=== PATIENT | male | born 1960 | race Caucasian/White ===

== ENCOUNTER 2020-04-20 10:00 | Outpatient (CLI) | payer OTHER, SELFPAY | END 2020-04-20 10:01 | disposition home or self-care (01) | LOC: SPT 02-19 12:11 | PROVIDERS: PCP Internal Medicine; Visit Provider Podiatrist Foot & Ankle Surgery | DX: Z46.89 Encounter for fitting and adjustment of other specified devices (principal); M76.71 Peroneal tendinitis, right leg | CPT/HCPCS: L4361 ==

== ENCOUNTER → 2020-04-20 11:04 | Outpatient (BNVA) | payer OTHER, SELFPAY | PROVIDERS: Family Provider Internal Medicine; Referring Provider Internal Medicine; Visit Provider Podiatrist Foot & Ankle Surgery | DX: S92.321A Displaced fracture of second metatarsal bone, right foot, initial encounter for closed fracture (principal); S92.331A Displaced fracture of third metatarsal bone, right foot, initial encounter for closed fracture; X58.XXXA Exposure to other specified factors, initial encounter | CPT/HCPCS: 73630 ==

== ENCOUNTER → 2020-08-05 13:40 | Outpatient (BNVA) | payer OTHER, SELFPAY | PROVIDERS: Family Provider Internal Medicine; PCP Internal Medicine; Visit Provider Podiatrist Foot & Ankle Surgery | DX: M79.671 Pain in right foot (principal) | CPT/HCPCS: 73630 ==

== ENCOUNTER → 2020-09-02 15:16 | Outpatient (BNVA) | payer OTHER, SELFPAY | PROVIDERS: Family Provider Internal Medicine; PCP Internal Medicine; Referring Provider Podiatrist Foot & Ankle Surgery; Visit Provider Podiatrist Foot & Ankle Surgery | DX: S92.321D Displaced fracture of second metatarsal bone, right foot, subsequent encounter for fracture with routine healing (principal); S92.331D Displaced fracture of third metatarsal bone, right foot, subsequent encounter for fracture with routine healing; S92.341D Displaced fracture of fourth metatarsal bone, right foot, subsequent encounter for fracture with routine healing; X58.XXXD Exposure to other specified factors, subsequent encounter | CPT/HCPCS: 73630 ==

== ENCOUNTER 2022-07-19 14:21 | Outpatient (CLI) | payer OTHER, SELFPAY ==
--- NOTE | 2022-07-19 14:36 | XR_ITS ---
WS: [id number] XR knee LT 3V* [id number] REASON FOR EXAM: PAIN IN LEFT KNEE FINDINGS: No acute fracture. Ill-defined sclerosis in the metadiaphysis of the proximal tibia, related to the t ibial tuberosity, not significant. Severe narrowing of the medial knee joint space with extensive subchondral sclerosis in the medial fe moral condyle and medial tibial plateau. Moderate osteophytosis of the medial femoral condyle and med ial tibial plateau. Mild medial shift of the femur. Mild narrowing of the lateral knee joint space with mild subchondral sclerosis and moderate osteophyt osis of the lateral femoral condyle. Moderate narrowing of the patellofemoral joint space with moderate subchondral sclerosis and marginal osteophytosis of the patella and adjacent femoral condyles. XR/XR knee LT 3V* [id number] IMPRESSION: Severe osteoarthritis with near [id number] articulation in the medial joint s pace.
== END 2022-07-19 14:22 | disposition home or self-care (01) ==
LOC: RAD 14:28
PROVIDERS: PCP Internal Medicine; Visit Provider Internal Medicine
DX: M17.12 Unilateral primary osteoarthritis, left knee (principal)
CPT/HCPCS: 73562

== ENCOUNTER → 2024-02-15 11:59 | Outpatient (BNVA) | payer MEDICARE, SELFPAY | PROVIDERS: PCP Internal Medicine; Visit Provider Psychiatry & Neurology Neurology | DX: R40.4 Transient alteration of awareness (principal); R55 Syncope and collapse; R41.9 Unspecified symptoms and signs involving cognitive functions and awareness | CPT/HCPCS: 95816 ==

== ENCOUNTER 2024-02-20 07:05 | Outpatient (CLI) | payer MEDICARE, SELFPAY ==
--- NOTE | 2024-02-20 07:08 | MR_ITS ---
WS: [id number] MRI BRAIN WITHOUT CONTRAST HISTORY: MENTAL STATUS,TRANSIENT ALTERATION COMPARISON: None available. TECHNIQUE: Diffusion imaging, multiplanar T1, T2 and FLAIR imaging obtained. No evidence for acute infarct or hemorrhage. Baltazar-white matter differentiation is normal. Mild symmetric atrophy and minimal small vessel disease. There is a prior lacunar infarct in the RIGH T cerebellum. No large territory infarct. Mild small vessel ischemic disease. Slightly greater distri bution on the RIGHT. No hemorrhage. Normal hippocampal formations. Ventricles and extra-axial spaces are normal. No inferior displacement of cerebellar tonsils. The sella turcica and pituitary gland are unremarkabl e. Dural venous sinuses and ely [place] demonstrate no abnormality on this unenhanced studies. Paranasal sinuses: Clear. Mastoid air cells: Normal. Calvarium and scalp: Intact. MR/MR head wo con* [id number] IMPRESSION: 1. No diffusion abnormalities or hemorrhage. 2. Mild symmetric atrophy and mild small vessel ischemic disease. Slightly gre ater T2 and FLAIR signal hyperintensities on the RIGHT. 3. Tiny lacunar infarct RIGHT cerebellum. 4. Normal hippocampal formations.
== END 2024-02-20 07:06 | disposition home or self-care (01) ==
PROVIDERS: PCP Internal Medicine; Visit Provider Internal Medicine
DX: R40.4 Transient alteration of awareness (principal)
CPT/HCPCS: 70551

== ENCOUNTER 2024-08-20 12:42 | Outpatient (CLI) | payer MEDICARE, SELFPAY ==
--- NOTE | 2024-08-20 12:44 | USCV_ITS ---
Edgar Roach Age: 64 Gender: M : 1960 Exam Date: 08/20/2024 13:25 Ordering Phys: Demarcus Stokes MD Technologist: R Exam Location: [facility] – [place] Indication: stenosis Risk Factors: Previous Vascular Surgery: Right Brachial BP: / Left Brachial BP: / Right Left Velocity (cm/s) Spectral Plaque Velocity (cm/s) Spectral Plaque Syst/Diast Broadening Syst/Diast Broadening 62.10/ 16.70 Prox CCA 84.20 / 14.90 72.40/ 19.30 Mid CCA 81.20 / 16.90 68.50/ 21.90 Distal CCA 58.70 / 13.30 46.70/ 11.30 Prox ICA 37.50 / 11.20 55.00/ 17.40 Mid ICA 34.50 / 13.00 47.30/ 21.10 Distal ICA 50.60 / 17.70 67.90 ECA 59.90 0.70 ICA/CCA 0.60 Antegrade Vertebral Antegrade 26.10/ 6.10 cm/s 27.10/ 6.70 cm/s Tri Subclavian Tri 72.20 91.00 CONCLUSIONS Right ICA stenosis <50%. Mild atheromatous plaque right carotid bulb/ICA. Left ICA stenosis <50%. Mild atheromatous plaque left carotid bulb/ICA. Intimal thickening in the common carotid arteries and internal carotid arteries bilaterally. Normal antegrade Doppler flow noted in the right vertebral artery. Normal antegrade Doppler flow noted in the left vertebral artery. Feroz Sierra MD (Electronically Signed) Final Date: 20 August 2024 14:13 S
--- NOTE | 2024-08-20 13:30 | USCV_ITS ---
Edgar Roach Age: 64 Gender: M : 1960 Exam Date: 08/20/2024 12:53 Ordering Phys: Demarcus Stokes MD Technologist: [place] [facility] [place]: BP: 145 / 91 HR: 44 Rhythm: Sinus Technical Quality: Adequate MEASUREMENTS (Male / Female) Normal Values 2D ECHO LVOT Diameter 2.1 cm LV Ejection Fraction MOD 4C 61.6 % LV Ejection Fraction MOD 2C 64.7 % LV Ejection Fraction 2C AL 65.8 % LA Diameter 4.0 cm RA Systolic Volume 4C AL 77.1 ml RA Systolic Volume 4C MOD 69.6 ml LA Sys Volume AL 57.3 cm cubed LA Sys Volume Index AL 23.4 cm cubed/m squared Aorta at Sinotubular Diameter 2.2 cm M-MODE LA Ao Ratio MM 2.0 AV Cusp Separation MM 2.1 cm DOPPLER AV Peak Velocity 137.0 cm/s AV Area Cont Eq vti 2.4 cm squared AV Area Cont Eq pk 2.7 cm squared MV Peak Velocity 79.0 cm/s MV Area PHT 3.0 cm squared Mitral E to A Ratio 1.6 TR Peak Velocity 155.0 cm/s TR Peak Gradient 9.6 mmHg TV Peak E Velocity 82.0 cm/s PV Peak Velocity 135.0 cm/s FINDINGS Left Ventricle Normal left ventricular size and systolic function, EF 65%. No regional wall motion abnormalities. Right Ventricle The right ventricle is normal in size and function. Right Atrium The right atrium is normal in size. Left Atrium The left atrium is normal in size. Mitral Valve No gross abnormalities noted Aortic Valve Thickened aortic valve. Tricuspid Valve Trace tricuspid valve regurgitation. Estimated pulmonary artery peak systolic pressure within normal limit Pulmonic Valve Pulmonic valve not well visualized. Pericardium Normal pericardium without effusion. Aorta Normal ascending aorta dimension. IVC The inferior vena cava appears normal. CONCLUSIONS Normal left ventricular size and systolic function, EF 65%. No regional wall motion abnormalities. Trace tricuspid valve regurgitation. Estimated pulmonary artery peak systolic pressure within normal limit. Normal cardiac chamber sizes. There is no pericardial effusion. There are no intracardiac masses. No similar previous studies are available for comparison Dr Ajay Hall MD FAC (Electronically Signed) Final Date: 23 August 2024 10:56 S
== END 2024-08-20 12:43 | disposition home or self-care (01) ==
LOC: RAD 12:42
PROVIDERS: PCP Internal Medicine; Visit Provider Psychiatry & Neurology Neurology
DX: G45.9 Transient cerebral ischemic attack, unspecified (principal); S92.344D Nondisplaced fracture of fourth metatarsal bone, right foot, subsequent encounter for fracture with routine healing; R56.9 Unspecified convulsions; I05.9 Rheumatic mitral valve disease, unspecified; R93.89 Abnormal findings on diagnostic imaging of other specified body structures
CPT/HCPCS: 93306; 93880

== ENCOUNTER 2024-10-28 13:46 | Outpatient (CLI) | payer MEDICARE, OTHER, SELFPAY ==
[2024-10-29 10:36] LABS: Levetiracetam Immunoassy 7.4 mcg/mL (6.0-46.0)
== END 2024-10-28 13:47 | disposition home or self-care (01) ==
LOC: LAB 13:48
PROVIDERS: PCP Internal Medicine; Visit Provider Psychiatry & Neurology Neurology
DX: Z79.899 Other long term (current) drug therapy (principal)
CPT/HCPCS: 80177

== ENCOUNTER → 2024-11-01 09:29 | Outpatient (BNVA) | payer MEDICARE, OTHER, SELFPAY | PROVIDERS: PCP Internal Medicine; Referring Provider Psychiatry & Neurology Neurology; Visit Provider Psychiatry & Neurology Neurology | DX: R56.9 Unspecified convulsions (principal) | CPT/HCPCS: 95813 ==